=== PATIENT | female | born 1950 | race Caucasian/White ===

== ENCOUNTER 2022-06-30 10:38 | Emergency (ER) | payer OTHER ==
[~2022-06-30] VITALS: Ht 157.5 cm; Wt 67.3 kg
[2022-06-30 10:53] VITALS: BP 134/83
[2022-06-30] MEDS ORDERED: HYDROcodone/acetaminophen 10/325mg tab PO STA (13:22)
[2022-06-30] MEDS ORDERED: morphine 10mg/ml inj. IM STA (13:34)
[2022-06-30] MEDS ORDERED: HYDR-3973 PO ×2 (14:04→16:27)
== END 2022-06-30 14:04 | disposition home or self-care (01) ==
LOC: ER 10:39
DX: S72.8X2A Other fracture of left femur, initial encounter for closed fracture (principal); Z79.899 Other long term (current) drug therapy; Z98.890 Other specified postprocedural states; X58.XXXA Exposure to other specified factors, initial encounter; Y93.89 Activity, other specified; Y92.89 Other specified places as the place of occurrence of the external cause; Y99.8 Other external cause status
CPT/HCPCS: 73564; 96372; 99284; J2274